=== PATIENT | female | born 1980 | race Caucasian/White ===

== ENCOUNTER → 2016-04-22 19:05 | Outpatient (CLI) | payer OTHER | END | disposition home or self-care (01) | LOC: D.LABREF 19:05 | DX: J02.9 Acute pharyngitis, unspecified (principal) ==

== ENCOUNTER → 2016-12-15 19:00 | Outpatient (CLI) | payer OTHER | END | disposition home or self-care (01) | LOC: D.LABREF 19:00 | DX: R10.2 Pelvic and perineal pain (principal) ==

== ENCOUNTER → 2018-01-06 11:03 | Outpatient (CLI) | payer OTHER | END | disposition home or self-care (01) | LOC: D.CT 11:03 | DX: K80.20 Calculus of gallbladder without cholecystitis without obstruction (principal); K59.04 Chronic idiopathic constipation; K21.0 Gastro-esophageal reflux disease with esophagitis; R10.30 Lower abdominal pain, unspecified ==